=== PATIENT | male | born 1995 | race Caucasian/White ===

== ENCOUNTER 2021-10-05 00:50 | Emergency (ER) | payer OTHER ==
[2021-10-05 02:51] LABS: BASOPHIL 0.3 % (0-2); EOSINOPHIL 0.2 % (0-5); HCT 44.3 % (42.0-52.0); HGB 14.7 g/dl (13.2-18.0); MCH 29.8 pg (25.0-31.0); MCHC 33.2 g/dL (32.0-36.0); MCV 89.9 fL (78.0-100.0); MONOCYTE 5.6 % (0-12); MPV 9.6 fL (6.0-9.5); NEUTROPHIL 79.9 % (41-80); NRBC 0; PLT 270 K/uL (150-400); RBC 4.93 M/uL (4.70-6.00); RDW 12.7 % (11.5-14.0); WBC 11.7 K/uL (4.0-10.5)
[2021-10-05 03:10] LABS: ALBUMIN 4.5 g/dL (3.4-5.0); ALKALINE PHOSHATASE 73 U/L (46-116); ALT 24 U/L (16-63); AMYLASE 48 U/L (25-115); AST 22 U/L (15-37); BILIRUBIN - TOTAL 0.6 mg/dL (0.2-1.0); BUN 18 mg/dL (7-18); BUN/CREAT RATIO (CALC) 21.7 RATIO; CHLORIDE 102 mmol/L (98-107); CO2 (BICARBONATE) 29 mmol/L (21-32); CREATININE 0.83 mg/dL (0.67-1.17); GLOBULIN (CALCULATION) 3.8 g/dL; GLUCOSE 101 mg/dL (74-106); LIPASE 41 U/L (73-393); POTASSIUM 3.8 mmol/L (3.5-5.1); TOTAL PROTEIN 8.3 g/dL (6.4-8.2)
== END 2021-10-05 04:10 ==
LOC: FER 00:50
PROVIDERS: Emergency Medicine Emergency Medical Services
DX: Z02.79 Encounter for issue of other medical certificate (principal); S02.2XXA Fracture of nasal bones, initial encounter for closed fracture; S00.03XA Contusion of scalp, initial encounter; M25.532 Pain in left wrist; R07.81 Pleurodynia; F17.210 Nicotine dependence, cigarettes, uncomplicated; V49.88XA Car occupant (driver) (passenger) injured in other specified transport accidents, initial encounter
CPT/HCPCS: 36415; 70450; 70486; 71250; 72125; 73100; 80053; 82150; 83690; 85025; G0480; J7512